=== PATIENT | female | born 1955 | race Caucasian/White ===

== ENCOUNTER 2017-05-10 10:53 | Inpatient (IN) | payer OTHER ==
[~2017-05-10] VITALS: Ht 163.8 cm; Wt 63.4 kg
[~2017-05-10 10:53] MED LIST: EPHEDRINE 50 MG/ML, 1ML ONE; LEVO100T5 PO; SIMV10TA3 PO
[2017-05-10 14:29] VITALS: BP 153/83
[2017-05-10] MEDS ORDERED: LACTATED RINGERS 1,000 ML IV SCH (14:42)
[2017-05-10] MEDS ORDERED: BUPIVACAINE/PF 0.25% ONE (15:08)
[2017-05-10] MEDS ORDERED: MIDAZOLAM 1 MG/ML, 2ML ONE (16:39)
[2017-05-10] MEDS ORDERED: CEFAZOLIN 1,000 MG ONE (16:40)
[2017-05-10] MEDS ORDERED: NEOSTIGMINE 1 MG/ML, 10ML ONE (16:40)
[2017-05-10] MEDS ORDERED: ONDANSETRON 2MG/ML, 2ML ONE (16:40)
[2017-05-10] MEDS ORDERED: SUCCINYLCHOLINE 20 MG/ML, 10ML ONE (16:40)
[2017-05-10] MEDS ORDERED: DEXAMETHASONE 4 MG/ML, 1ML ONE (16:40)
[2017-05-10] MEDS ORDERED: ROCURONIUM 10 MG/ML,10ML ONE (16:40)
[2017-05-10] MEDS ORDERED: PROPOFOL 10 MG/ML, 20ML ONE (16:40)
[2017-05-10] MEDS ORDERED: FENTANYL PF 250 MCG/5ML ONE ×2 (16:40→21:13)
[2017-05-10] MEDS ORDERED: LIDOCAINE GEL 2%, 5ML ONE (16:43)
[2017-05-10] MEDS ORDERED: MEPERIDINE/PF 25MG/0.5ML IVPush PRN (20:30)
[2017-05-10] MEDS ORDERED: PROMETHAZINE 25 MG/ML, 1ML IV PRN (20:30)
[2017-05-10] MEDS ORDERED: ONDANSETRON 2MG/ML, 2ML IVPush PRN (20:30)
[2017-05-10] MEDS ORDERED: ACETAMINOPHEN 325 MG TABLET PO PRN (20:30)
[2017-05-10] MEDS ORDERED: OXYcodone 5 MG/5 ML ORAL.SOL UDC PO PRN (20:30)
[2017-05-10] MEDS ORDERED: FENTANYL PF 100 MCG/2ML IV PRN (20:30)
[2017-05-10 21:32] LABS: CYTOLOGY BODY FLUID RECD INTO PATHOLOGY; CYTOLOGY BODY FLUID SOURCE PERITONEAL FLUID
[2017-05-10] MEDS ORDERED: ACETAMINOPHEN 650 MG/20.3 ML UDC ONE (22:22)
[2017-05-10] MEDS ORDERED: OXYcodone 5 MG/5 ML ORAL.SOL UDC ONE (22:22)
[2017-05-10] MEDS ORDERED: HYDROmorphone 1 MG/ML, 1ML ONE (22:38)
[2017-05-10] MEDS: HYDROmorphone 1 MG/ML, 1ML IV PRN ×2 (22:42→22:50)
[2017-05-10] MEDS: LACTATED RINGERS 1,000 ML IV SCH (23:38)
[2017-05-11] MEDS ORDERED: KETOROLAC 30 MG/1 ML IVPush PRN
[2017-05-11] MEDS ORDERED: ONDANSETRON 2MG/ML, 2ML IVPush PRN
[2017-05-11] MEDS ORDERED: OXYcodone/APAP 5/325MG TABLET PO PRN
[2017-05-11 01:47] VITALS: BP 109/56
[2017-05-11 04:59] LABS: HEMATOCRIT 35.1 % (34.6-47.8); HEMOGLOBIN 11.6 g/dL (11.7-16.4); WHITE BLOOD COUNT 9.6 x10^3/uL (3.4-10)
[2017-05-11 05:03] LABS: BLOOD UREA NITROGEN 11 mg/dL (7-18)
[2017-05-11] MEDS: LACTATED RINGERS 1,000 ML IV SCH (05:50)
[2017-05-11 07:36] VITALS: BP 125/74
[2017-05-11] MEDS ORDERED: ONDA4TAB7 PO (10:52)
[2017-05-11] MEDS ORDERED: OXYC-302 PO (10:52)
[2017-05-11] MEDS ORDERED: SIMVASTATIN 10 MG TABLET PO SCH (21:00)
[2017-05-12] MEDS ORDERED: LEVOTHYROXINE 100 MCG TABLET PO SCH (06:00)
== END 2017-05-11 11:01 | disposition home or self-care (01) | DRG 749 ==
LOC: ORIP 13:46 → EDSTATUS 17:30 → 3NW 23:17 → DCLOUNGE 05-11 10:50
PROVIDERS: ADMIT Specialist; ATTEND Specialist
PROC: 0DBW0ZX Excision of Peritoneum, Open Approach, Diagnostic (ICD-10-PCS; principal; 2017-05-10 17:30)
DX: C56.9 Malignant neoplasm of unspecified ovary (principal); C78.6 Secondary malignant neoplasm of retroperitoneum and peritoneum; R18.8 Other ascites
CPT/HCPCS: 36415; 80048; 85025; 86850; 86900; 86923; 88112; 88305; J0690; J1100; J1170; J2250; J2405; J2704; J2710; J3010; J3490; J0330; J7120